=== PATIENT | male | born 1965 | race Asian ===

== ENCOUNTER 2017-09-20 09:19 | Day surgery (SDC) | payer OTHER ==
[2017-09-20] MEDS ORDERED: LACTATED RINGERS 1,000 ML IV ONE (09:34)
[2017-09-20] MEDS ORDERED: fentaNYL 250 MCG/5 ML VIAL IVP ONE (11:46)
[2017-09-20] MEDS ORDERED: MIDAZOLAM 2 MG/2 ML VIAL IVP ONE (11:46)
[2017-09-20 12:52] VITALS: BP 110/66
== END 2017-09-20 09:20 | disposition home or self-care (01) ==
LOC: SDS 09:19
PROVIDERS: ATTEND Internal Medicine
PROC: 0DJD8ZZ Inspection of Lower Intestinal Tract, Via Natural or Artificial Opening Endoscopic (ICD-10-PCS; principal; 2017-09-20 11:00)
DX: Z12.11 Encounter for screening for malignant neoplasm of colon (principal); K64.8 Other hemorrhoids
CPT/HCPCS: 45378; J3010; J7120

== ENCOUNTER 2022-07-08 10:38 | Day surgery (SDC) | payer OTHER ==
--- NOTE | 2022-07-08 10:51 | ANESTHESIA ---
Pre-Anesthesia VS, & Labs - Diagnosis blood per rectum - Procedure colonoscopy Height: 5 ft 4 in - NPO >8 hours Last Fluid Intake: am prep - Lab Results Lab results reviewed: Yes Home Medications and Allergies Home Medications: Ambulatory Orders Rosuvastatin Calcium [Crestor] 10 mg PO DAILY 07/07/22 Rosuvastatin Calcium [Crestor] 10 mg PO DAILY 07/07/22 Allergies/Adverse Reactions: Allergies Allergy/AdvReac Type Severity Reaction Status Date / Time No Known Drug Allergies Allergy Verified 09/19/17 13:11 Anes History & Medical History - Anesthetic History Anesthesia Complications: reports: No previous complications Family history of Anesthesia Complications: Denies Family history of Malignant Hyperthermia: Denies - Medical History Cardiovascular: reports: High cholesterol Pulmonary: reports: Sleep apnea Gastrointestinal: reports: None Urinary: reports: None Musculoskeletal: reports: Osteoarthritis, Chronic back pain Endocrine/Autoimmune: reports: None Skin: reports: None - Surgical History General: reports: Colonoscopy Orthopedic: reports: ACL reconstruction Exam General: Alert, Oriented x3, Cooperative Dental: WNL Mouth Openin Fingerbreadth Neck Mobility: Normal Mallampati classification: II Thyromental Distance: 4-6 cm Respiratory: Lungs clear, Normal breath sounds, No respiratory distress Cardiovascular: Regular rate Neurological: Normal speech Mental/Cognitive Status: Alert/Oriented X3, Normal for patient Cognitive Status: Within normal limits Plan Anesthesia Type: Total IV Consent for Procedure(s) Verified and Reviewed: Yes Code Status: Attempt Resuscitation ASA classification: 2-Mild systemic disease Is this case an emergency?: No
[2022-07-08] MEDS ORDERED: LACTATED RINGERS 1,000 ML IV ONE ×2 (11:12→13:41)
[2022-07-08] MEDS ORDERED: PROPOFOL 500 MG/50 ML 500 MG/50 ML VIAL ONE (11:22)
[2022-07-08] MEDS ORDERED: MIDAZOLAM 2 MG/2 ML VIAL ONE (11:52)
[2022-07-08] MEDS ORDERED: LIDOCAINE-PF 2% 10 ML AMP SUBQ ONE (13:03)
[2022-07-08] MEDS ORDERED: SIMETHICONE 40 MG/0.6 ML 30 ML BOTTLE PO ONE (13:13)
--- NOTE | 2022-07-08 13:50 | ANESTHESIA POST OP EVALUATION ---
Anesthesia Post Eval - Post Anesthesia Eval Vitals: Last Vital Signs Temp 36.1 C L 07/08/22 13:40 Pulse 74 07/08/22 13:40 Resp 14 07/08/22 13:40 BP 99/64 07/08/22 13:40 Pulse Ox 99 07/08/22 13:40 O2 Flow Rate 0 07/08/22 10:58 CV Function Including HR & BP: Stable Pain Control: Satisfactory Nausea & Vomiting: Negative Mental Status: Baseline Respiratory Status: Airway Patent Hydration Status: Satisfactory Anesthesia Complications: None
[2022-07-08 14:06] VITALS: BP 97/70
== END 2022-07-08 10:39 | disposition home or self-care (01) ==
LOC: SDS 10:38
PROVIDERS: ATTEND Surgery
DX: K62.5 Hemorrhage of anus and rectum (principal); K64.4 Residual hemorrhoidal skin tags; G47.30 Sleep apnea, unspecified
CPT/HCPCS: 45378; A9270; J7120

== ENCOUNTER 2023-05-15 08:29 | Outpatient (CLI) | payer OTHER ==
--- NOTE | 2023-05-15 17:09 | Ultrasound Report ---
PROCEDURE: Abdomen Limited INDICATIONS: ELEVATED TRANSAMINASES TECHNIQUE: Real-time focused scanning was performed of the abdomen, with image documentation. COMPARISONS: None. FINDINGS: Liver: Liver is normal in size and homogeneous in echotexture. 1 x 1.2 x 1 cm hyperechoic structure is noted within right hepatic lobe and show no internal vascularity. Gallbladder: Multiple stones, polyps and debris is are noted within the bladder lumen measures up to 6 x 4 x 3 mm in size. No gallbladder wall thickening or pericholecystic fluid. No sonographic Burroughs' s sign. Biliary ducts: Intrahepatic bile ducts are non-dilated. Extrahepatic bile duct caliber measures 4 m m. Normal is 6-7 mm or less in diameter, or 10 mm or less post-cholecystectomy. Pancreas: Visualized portions of the pancreas are sonographically normal. Right kidney: Normal in size and echotexture. Right kidney measures 7.3 cm long. No hydronephrosis o r nephrolithiasis. No solid masses. No complex renal cystic lesions which require follow-up. Aorta: Visualized aorta is normal in caliber at less than 3 cm. IVC: Intrahepatic inferior vena cava is patent. Miscellaneous: No free abdominal fluid. IMPRESSION: 1. Stones, tiny polyps and internal debris is are seen within gallbladder lumen. No sonographic evide nce of acute cholecystitis. No biliary ductal dilatation. 2. Possible hemangioma involving right hepatic lobe as above. Clinical correlation and follow-up is r ecommended. 3. The rest of the exam is unremarkable. Reviewed by: Rashid Palacios MD on 05/15/2023 5:07 PM PST Approved by: Rashid Palacios MD on 05/15/2023 5:07 PM PST Station ID: [id number]
== END 2023-05-15 08:30 | disposition home or self-care (01) ==
LOC: DI 08:29
PROVIDERS: ATTEND Registered Nurse
DX: R74.01 Elevation of levels of liver transaminase levels (principal)

== ENCOUNTER 2023-07-05 13:09 | Outpatient (CLI) | payer OTHER ==
[~2023-07-05 13:09] MED LIST: GADOTERATE MEGLUMINE 10 MMOL/20 ML VIAL ONE
[2023-07-05] MEDS: GADOTERATE MEGLUMINE 10 MMOL/20 ML VIAL IVP ONE (17:23)
--- NOTE | 2023-07-05 21:46 | MRI Report ---
PROCEDURE: Abdomen W/WO INDICATIONS: LIVER LESION CONTRAST: Clariscan 14.6ml TECHNIQUE: Coronal ultra fast SE, axial 2D spoiled GE in- and [id number]; axial breath-hold T2 fast SE. Dynam ic axial ultra fast GE during the administration of contrast; post-contrast coronal ultra fast GE or 2D spoiled GE with fat saturation from the hepatic dome to the iliac crests. Optional diffusion weig hted imaging and ADC may be performed. COMPARISON: Abdominal ultrasound 05/15/2023. FINDINGS: Image quality: Excellent. Lung bases and heart: Unremarkable. Liver: Small arterial enhancing focus in the right lobe of liver measuring 1.4 cm, (11/32). This like ly corresponds to the ultrasound finding. This is isointense on the other phases. This could represen t a small hemangioma. No restricted diffusion. Small cyst. Gallbladder and biliary tree: No radiopaque stones or wall thickening. No biliary dilation. Spleen: No splenomegaly. Pancreas: No pancreatic ductal dilation. Adrenals: No adrenal nodule. Kidneys and ureters: No hydronephrosis. Small cyst at the mid left kidney measuring 0.9 cm, (15/56). T2 isointense, T1 hypointense, no enhancement. No restricted diffusion. Bowel and peritoneum: No bowel distension. No pathologic free fluid. Lymph nodes: No central or retroperitoneal adenopathy. Vessels: No infrarenal aortic aneurysm. Duplicated IVC. Bones: No aggressive osseous abnormality. Other: No significant ventral hernia. IMPRESSION: 1. Small hemangioma suspected in the right lobe of liver measuring 1.4 cm. 2. Small mildly corticated cyst in the left kidney measuring 0.9 cm. 3. No biliary or pancreatic ductal dilatation. No adenopathy. 4. Duplicated IVC variant anatomy. Reviewed by: Minor Guillen MD on 07/05/2023 9:44 PM PDT Approved by: Minor Guillen MD on 07/05/2023 9:44 PM PDT Station ID: [id number]
== END 2023-07-05 13:10 | disposition home or self-care (01) ==
LOC: DI 13:09
PROVIDERS: ATTEND Registered Nurse
DX: K76.9 Liver disease, unspecified (principal); N28.1 Cyst of kidney, acquired
CPT/HCPCS: 74183; A9575